=== PATIENT | male | born 1980 | race Caucasian/White ===

== ENCOUNTER → 2025-01-19 09:24 | Outpatient (REF) | payer OTHER, SELFPAY | LOC: HWRAD 09:24 | PROVIDERS: ATTENDING PHYSICIAN Family Medicine | DX: M54.9 Dorsalgia, unspecified (principal); R10.9 Unspecified abdominal pain | CPT/HCPCS: 71046; 76700 ==

== ENCOUNTER 2025-09-01 02:58 | Emergency (ER) | payer OTHER, SELFPAY ==
[2025-09-01 03:00] VITALS: BP 150/108
[2025-09-01 03:51] VITALS: BP 149/87
[2025-09-01 04:00] VITALS: BP 129/90
[2025-09-01 05:00] VITALS: BP 121/83
[2025-09-01] MEDS: PEPCID 40 MG PO (05:39)
[2025-09-01] MEDS: DECADRON 10 MG PO (05:39)
--- NOTE | 2025-09-01 05:40 | ED.GENMED ---
History of Present Illness
General
Chief Complaint: Allergic Reaction
Source: patient
Exam Limitations: none
Time Seen by Provider: 09/01/25 05:24
Nursing documentation reviewed up to this point in time: agreed with
History of Present Illness
History of Present Illness:
45-year-old male past medical history of hypertension hyperlipidemia presenting to the emergency department today with concerns of itchy hives to his extremities abdomen and back. He claims that he was in [place] up until yesterday evening he thinks
he may have been exposed to something in that time. Denies any trouble swallowing or breathing no abdominal pain no vomiting.
Review of Systems
Review of Systems
Allergies reviewed?: Yes
All Other Systems: ROS reviewed and negative except as documented in HPI and ROS
Phy Exam
Physical Exam
Physical Exam:
GENERAL: Alert , in no apparent distress
EYE: pupils equal and reactive
NECK: Supple, no significant adenopathy.
ENT: o/p clr, mmm.
CARDIAC: Regular rate and rhythm .
LUNGS: Clear breath sounds bilaterally, no acute respiratory distress, no wheezes/rales/rhonchi
ABDOMEN: Soft, without focal tenderness, no r/g, no cvat
NEUROLOGICAL: Alert and oriented, no focal neuro deficits
SKIN: Scattered hives to the upper extremities and lower extremities no involvement of the mucous membranes warm and dry, skin intact.
MUSCULOSKELETAL: No edema, well perfused.
PSYCH: Normal and appropriate interaction.
Course
Orders/Labs/Results
Orders:
Orders
09/01/25 05:33
Dexamethasone [Decadron] 10 mg PO NOW STA
Famotidine [Pepcid] 40 mg PO NOW STA
Vital Signs
Initial and Last Documented VS:
Initial Vital Signs
Temp Pulse Resp BP Pulse Ox
97.4 F 120 24 150/108 100
09/01/25 03:00 09/01/25 03:00 09/01/25 03:00 09/01/25 03:00 09/01/25 03:00
Last Documented Vital Signs
Temp Pulse Resp BP Pulse Ox
97.4 F 96 10 121/83 95
09/01/25 03:00 09/01/25 05:15 09/01/25 05:15 09/01/25 05:00 09/01/25 05:15
MDM/Problems Addressed
MDM/Problems Addressed:
45-year-old male presenting to the emergency department today with concerns of hives. No evidence of anaphylaxis. No mucous membrane involvement lungs are clear no abdominal pain. Patient was given steroid as well as antihistamine otherwise
stable for outpatient management. Return precautionsGiven.
*Pulse Oximetry
SaO2: 95
Oxygen Mode of Delivery: Room air
Patient hypoxic: no (95)
*Critical Care Note
Total Time (30-74mins, 75-104mins- exclusive of procedures): Not Applicable
ED Attending Note
-
Portions of this chart may have been created with voice recognition software.� Occasional wrong word or��sound alike� substitutions may have occurred due to the inherent limitations of voice recognition software.
Discharge Plan
Departure
Patient Disposition: Home (Routine Discharge)
Date of Disposition: 09/01/25
Time of Disposition: 05:42
Patient with high blood pressure during this ER visit?: No
Condition: Good
Covid-19: Not Applicable
Discharge Problem:
Hives
Instructions: Hives (DC)
Prescriptions:
New
famotidine 20 mg tablet
20 mg PO BID 4 Days Qty: 8 0RF
epinephrine [Auvi-Q] 0.3 mg/0.3 mL auto-injector
0.3 mg IM Q5-15M PRN (Reason: anaphylaxis) Qty: 2 0RF
prednisone 20 mg tablet
40 mg PO DAILY 4 Days Qty: 8 0RF
Referrals:
Khanna,Raghavendra, DO [Family Provider, Family Practice]
Activity Restrictions/Additional Instructions:
You came to the emergency department today with concerns of an allergic reaction. You are given steroid. Please take the prescribed medications over the next few days and follow-up closely with the primary care doctor. Return for any worsening,
new or concerning symptoms.
Interventions
Interventions:
*Risk Screen - Suicide Last Done: 09/01/25 03:00
*General Assessment Last Done: 09/01/25 03:45
*Neglect/Abuse Screening Last Done: 09/01/25 03:00
*ED- Fall Risk Assessment Last Done: 09/01/25 03:45
*ED COVID-19 Vaccine History Last Done: 09/01/25 03:45
*ED Influenza Vaccine History Last Done: 09/01/25 03:45
ED- Cardiac Assessment Last Done: 09/01/25 03:45
ED- Pulmonary Assessment Last Done: 09/01/25 03:45
ED-Skin Assessment Last Done: 09/01/25 03:45
Discharge Date and Time
Print Language: SAO TOMEAN
== END 2025-09-01 05:58 | disposition home or self-care (01) ==
LOC: EMR 02:58
PROVIDERS: EMERGENCY PHYSICIAN Emergency Medicine; FAMILY PHYSICIAN Family Medicine
DX: L50.9 Urticaria, unspecified (principal); E78.5 Hyperlipidemia, unspecified; I10 Essential (primary) hypertension
CPT/HCPCS: 99283

== ENCOUNTER → 2025-09-30 14:14 | Outpatient (REF) | payer OTHER, SELFPAY | LOC: RAD 14:14 | PROVIDERS: ATTENDING PHYSICIAN Student in an Organized Health Care Education/Training Program; FAMILY PHYSICIAN Nurse Practitioner Family | DX: R59.0 Localized enlarged lymph nodes (principal) | CPT/HCPCS: 76536 ==